=== PATIENT | female | born 1955 | race Caucasian/White ===

== ENCOUNTER 2016-06-30 08:13 | Outpatient (CLI) | payer MEDICARE | END 2016-06-30 08:14 | disposition home or self-care (01) | DX: Z13.220 Encounter for screening for lipoid disorders (principal); R73.01 Impaired fasting glucose; Z13.228 Encounter for screening for other metabolic disorders; Z13.89 Encounter for screening for other disorder ==

== ENCOUNTER 2016-08-02 09:47 | Outpatient (CLI) | payer MEDICARE ==
--- NOTE | 2016-08-03 16:18 | Mammography Report ---
DIGITAL SCREENING MAMMOGRAM: 08/02/2016 CLINICAL INDICATION: A 60-year-old with history of benign biopsy and bilateral reduction, for screeni ng. COMPARISON: 03/2012, 12/2010, 03/2009, 08/2008. TECHNIQUE: Routine CC and MLO projections were obtained of the breasts. FINDINGS: The breasts again demonstrate scattered fibroglandular densities bilaterally. A few puncta te, typically benign calcifications are present. No suspicious masses, clustered microcalcifications, or regions of architectural distortion are identified. IMPRESSION: BENIGN FINDINGS. RECOMMENDATION: ROUTINE ANNUAL SCREENING UNLESS OTHERWISE CLINICALLY INDICATED. BIRADS CATEGORY 2-BENIGN FINDINGS. STANDARD QUALIFYING STATEMENTS 1. This examination was reviewed with the aid of Computer-Aided Detection (CAD). 2. A negative or benign imaging report should not delay biopsy if clinically suspicious findings are present. Consider surgical consultation if warranted. More than 5% of cancers are not identified by i maging. 3. Dense breasts may obscure an underlying neoplasm. JOB #: [id number] EXT JOB #:[id number]
== END 2016-08-02 09:48 | disposition home or self-care (01) ==
LOC: DI 09:47
PROVIDERS: ATTEND Nurse Practitioner Family
DX: Z12.31 Encounter for screening mammogram for malignant neoplasm of breast (principal)
CPT/HCPCS: 77067

== ENCOUNTER 2017-02-06 08:06 | Outpatient (CLI) | payer MEDICARE ==
[2017-02-06 10:42] LABS: CALCIUM 8.9 mg/dL (8.5-10.3); CREATININE 0.7 mg/dL (0.4-1.0); POTASSIUM 3.4 mmol/L (3.5-5.0)
== END 2017-02-06 08:07 | disposition home or self-care (01) ==
LOC: LAB.F 08:06
PROVIDERS: ATTEND Nurse Practitioner Family
DX: Z79.899 Other long term (current) drug therapy (principal)
CPT/HCPCS: 36415; 80048

== ENCOUNTER 2017-05-02 08:00 | Outpatient (CLI) | payer MEDICARE ==
[2017-05-03 10:50] LABS: BASOPHILS % (AUTO) 0.5 %; EOSINOPHILS # (AUTO) 0.2 10^3/uL (0.0-0.7); EOSINOPHILS % (AUTO) 2.6 %; HGB - HEMOGLOBIN 14.2 g/dL (12.0-16.0); LYMPHOCYTES # (AUTO) 2.1 10^3/uL (1.5-3.5); LYMPHOCYTES % (AUTO) 32.8 %; MEAN CORPUSCULAR HEMOGLOBIN 27.3 pg (27.0-31.0); MEAN CORPUSCULAR HGB CONC 33.2 g/dL (32.0-36.0); MEAN CORPUSCULAR VOLUME 82.4 fL (81.0-99.0); MONOCYTES # (AUTO) 0.5 10^3/uL (0.0-1.0); MONOCYTES % (AUTO) 7.2 %; NEUTROPHILS # (AUTO) 3.6 10^3/uL (1.5-6.6); NEUTROPHILS % (AUTO) 56.9 %; PLT - PLATELET COUNT 237 10^3/uL (130-450); RED BLOOD COUNT 5.19 10^6/uL (4.20-5.40); RED CELL DISTRIBUTION WIDTH 13.4 % (12.0-15.0); WHITE BLOOD COUNT 6.3 x10^3/uL (4.8-10.8)
== END 2017-05-02 08:01 | disposition home or self-care (01) ==
LOC: LAB.F 08:00
PROVIDERS: ATTEND Nurse Practitioner Family
DX: Z01.818 Encounter for other preprocedural examination (principal); R94.31 Abnormal electrocardiogram [ECG] [EKG]; M75.102 Unspecified rotator cuff tear or rupture of left shoulder, not specified as traumatic
CPT/HCPCS: 36415; 85025

== ENCOUNTER 2017-05-02 15:58 | Outpatient (CLI) | payer MEDICARE | END 2017-05-02 15:59 | disposition home or self-care (01) | LOC: RT.S 15:58 | PROVIDERS: ATTEND Nurse Practitioner Family | DX: Z01.818 Encounter for other preprocedural examination (principal); R94.31 Abnormal electrocardiogram [ECG] [EKG]; M75.102 Unspecified rotator cuff tear or rupture of left shoulder, not specified as traumatic | CPT/HCPCS: 36415; 85025 ==

== ENCOUNTER 2017-12-14 10:38 | Outpatient (CLI) | payer MEDICARE | END 2017-12-14 10:39 | disposition home or self-care (01) | LOC: LAB.F 10:38 | PROVIDERS: ATTEND Nurse Practitioner Family | DX: M79.674 Pain in right toe(s) (principal) | CPT/HCPCS: 36415; 84550 ==

== ENCOUNTER 2017-12-18 12:58 | Outpatient (CLI) | payer MEDICARE ==
--- NOTE | 2017-12-19 15:48 | XRAY Report ---
Reason: FOREARM PAIN,RIGHT Procedure Date: 12/18/2017 Accession Number: [id number] / [id number] Procedure: XR - Knee 3 View RT CPT Code: FULL RESULT: EXAM: RIGHT KNEE RADIOGRAPHY EXAM DATE: 12/18/2017 01:35 PM. CLINICAL HISTORY: Swelling PAIN,RIGHT. COMPARISON: None. TECHNIQUE: 3 views. FINDINGS: Bones: Normal. No fractures or bone lesions. Joints: Osteophyte patellofemoral compartment with lateral facet narrowing. Spurring of the tibial spines. Osteophyte lateral joint space. Soft Tissues: Normal. No soft tissue swelling. IMPRESSION: Mild DJD RADIA
== END 2017-12-18 12:59 | disposition home or self-care (01) ==
LOC: DI 12:58
PROVIDERS: ATTEND Nurse Practitioner Family
DX: M17.11 Unilateral primary osteoarthritis, right knee (principal)

== ENCOUNTER 2019-10-18 09:51 | Emergency (ER) | payer MEDICAID, MEDICARE, OTHER ==
[2019-10-18 10:38] LABS: BASOPHILS % (AUTO) 0.3 %; EOSINOPHILS % (AUTO) 0.2 %; HGB - HEMOGLOBIN 14.1 g/dL (12.0-16.0); LYMPHOCYTES # (AUTO) 0.9 10^3/uL (1.5-3.5); LYMPHOCYTES % (AUTO) 8.4 %; MEAN CORPUSCULAR HEMOGLOBIN 28.7 pg (27.0-31.0); MEAN CORPUSCULAR HGB CONC 33.2 g/dL (32.0-36.0); MEAN CORPUSCULAR VOLUME 86.6 fL (81.0-99.0); MEAN PLATELET VOLUME 9.4 fL (7.9-10.8); MONOCYTES # (AUTO) 0.7 10^3/uL (0.0-1.0); NEUTROPHILS # (AUTO) 9.4 10^3/uL (1.5-6.6); NEUTROPHILS % (AUTO) 84.6 %; PLT - PLATELET COUNT 222 10^3/uL (130-450); RED BLOOD COUNT 4.91 10^6/uL (4.20-5.40); RED CELL DISTRIBUTION WIDTH 11.9 % (12.0-15.0); WHITE BLOOD COUNT 11.1 x10^3/uL (4.8-10.8)
[2019-10-18 10:38] LABS: GLUCOSE, URINE (UA) NEGATIVE (NEGATIVE); KETONES,URINE (UA) >=80 mg/dL (NEGATIVE); LEUKOCYTE ESTERASE, URINE MODERATE (NEGATIVE); NITRITE,URINE POSITIVE (NEGATIVE); OCCULT BLOOD,URINE SMALL (NEGATIVE); PH,URINE 6.5 PH (5.0-7.5); PROTEIN,URINE 30 mg/dL (NEGATIVE); UROBILINOGEN,URINE 4 E.U./dL (NORMAL)
[2019-10-18 10:39] LABS: CLARITY,URINE SL. CLOUDY (CLEAR)
[2019-10-18 10:42] LABS: BILIRUBIN,URINE NEGATIVE (NEGATIVE); ICTOTEST,URINE NEGATIVE
[2019-10-18 10:53] LABS: BACTERIA,URINE Moderate /HPF (None Seen); SQUAMOUS EPITHELIAL CELL,UR MOD Squamous (<= Few)
[2019-10-18 10:57] LABS: ALBUMIN/GLOBULIN RATIO 1.4 (1.0-2.2); BILIRUBIN,TOTAL 1.2 mg/dL (0.2-1.0); CALCIUM 9.2 mg/dL (8.5-10.3); CREATININE 0.7 mg/dL (0.4-1.0); TOTAL PROTEIN 6.8 g/dL (6.7-8.2)
[2019-10-18] MEDS ORDERED: SODIUM CHLORIDE 0.9% 1,000 ML IV STA (11:24)
--- NOTE | 2019-10-18 11:28 | ED Physician Documentation ---
PD HPI NVD - Stated complaint Stated Complaint: ABD PX - Chief complaint Chief Complaint: Abd Pain - History obtained from History obtained from: Patient - History of Present Illness Timing - onset: How many days ago (3) Timing - duration: Days (3) Timing - details: Gradual onset, Still present Associated symptoms: Abdominal pain, Dizzy, Near syncope / syncope Contributing factors: Recent antibiotics Improved by: Vomiting, BM Similar symptoms before: Has not had sx before Recently seen: Clinic - Additonal information Additional information: 63-year-old female was recently been treated for urinary tract infection with Macrobid has developed nausea vomiting and diarrhea. She has had C. difficile diarrhea previously with some bloody diarrhea but did not have any significant cramping pain. She now has cramping abdominal pain, fullness and bloating. She feels dehydrated. She does state that she thought she had a fever on the first day she is not febrile now. Review of Systems Constitutional: reports: Fever, Myalgias, Fatigue Eyes: denies: Decreased vision Ears: denies: Ear pain Nose: denies: Rhinorrhea / runny nose, Congestion Throat: denies: Sore throat Cardiac: denies: Chest pain / pressure, Palpitations Respiratory: denies: Dyspnea, Cough GI: reports: Abdominal Pain, Nausea, Vomiting, Diarrhea : denies: Dysuria, Frequency Skin: denies: Rash Musculoskeletal: denies: Neck pain, Back pain Neurologic: denies: Generalized weakness, Focal weakness, Numbness PD PAST MEDICAL HISTORY - Present Medications Home Medications: Ambulatory Orders Medication Instructions Recorded Confirmed Sulfamethoxazole/Trimethoprim 1 each PO BID #14 tablet 10/18/19 [Sulfamethoxazole-Tmp Ds Tablet] estradioL [Estradiol] 0.5 mg PO 10/18/19 traZODone [Desyrel] 50 mg PO ONCE 10/18/19 10/18/19 - Allergies Allergies/Adverse Reactions: Allergies Allergy/AdvReac Type Severity Reaction Status Date / Time No Known Drug Allergies Allergy Verified 10/18/19 09:56 PD ED PE NORMAL - Vitals Vital signs reviewed: Yes (Hypertensive mild) - General General: Alert and oriented X 3, No acute distress, Well developed/nourished - HEENT HEENT: Atraumatic, PERRL, EOMI - Neck Neck: Supple, no meningeal sign, No bony TTP - Cardiac Cardiac: RRR, No murmur - Respiratory Respiratory: No respiratory distress, Clear bilaterally - Abdomen Abdomen: Normal bowel sounds, Soft, Non distended, No organomegaly, Other (Mild generalized tenderness without guarding or rebound) - Back Back: No CVA TTP, No spinal TTP - Derm Derm: Normal color, Warm and dry, No rash - Extremities Extremities: No deformity, No edema, No calf tenderness / cord - Neuro Neuro: Alert and oriented X 3, 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, No motor deficit, No sensory deficit, Normal speech Eye Opening: Spontaneous Motor: Obeys Commands Verbal: Oriented GCS Score: 15 - Psych Psych: Normal mood, Normal affect Results - Vitals Vitals: Vital Signs - 24 hr 10/18/19 10/18/19 09:54 12:33 Temperature 36.3 C L 36.8 C Heart Rate 87 80 Respiratory 16 19 Rate Blood Pressure 138/65 H 138/84 H O2 Saturation 96 98 Oxygen O2 Source Room air - Labs Labs: Laboratory Tests 10/18/19 10/18/19 10/18/19 10:05 10:25 10:25 WBC 11.1 H RBC 4.91 Hgb 14.1 Hct 42.5 MCV 86.6 MCH 28.7 MCHC 33.2 RDW 11.9 L Plt Count 222 MPV 9.4 Neut # (Auto) 9.4 H Lymph # (Auto) 0.9 L [place] # (Auto) 0.7 Eos # (Auto) 0.0 Baso # (Auto) 0.0 Absolute Nucleated RBC 0.00 Nucleated RBC % 0.0 Sodium 139 Potassium 2.9 L Chloride 105 Carbon Dioxide 25 Anion Gap 9.0 BUN 17 Creatinine 0.7 Estimated GFR (MDRD) 84 L Glucose 117 H Calcium 9.2 Total Bilirubin 1.2 H AST 14 ALT 18 Alkaline Phosphatase 63 Total Protein 6.8 Albumin 4.0 Globulin 2.8 Albumin/Globulin Ratio 1.4 Lipase 19 L Urine Color DARK YELLOW Urine Clarity SL. CLOUDY Urine pH 6.5 Ur Specific [place] 1.025 Urine Protein 30 H Urine Glucose (UA) NEGATIVE Urine Ketones >=80 H Urine Occult Blood SMALL H Urine Nitrite POSITIVE H Urine Bilirubin NEGATIVE Urine Urobilinogen 4 H Ur Leukocyte Esterase MODERATE H Urine RBC 6-10 H Urine WBC 11-25 H Ur Squamous Epith Cells MOD Squamous H Urine Bacteria Moderate H Ur Microscopic Review INDICATED Urine Culture Comments NOT INDICATED PD MEDICAL DECISION MAKING - ED course Complexity details: reviewed old records, reviewed results, re-evaluated patient, considered differential, d/w patient ED course: 63-year-old female with acute abdominal pain vomiting and diarrhea has urinary tract symptoms as well and has urinary tract infection on evaluation of the urine under the microscope. She has recently been on some Macrobid and she has developed acute diarrhea as well. There is no blood in the diarrhea. she has abdominal cramping associated with this and she has persistence of the infection.She is found to be dehydrated on interrogation the inferior vena cava and she is administered saline, potassium and rocephin. Departure - Departure Disposition: Home, Self Care Clinical Impression: Hypokalemia Urinary tract infection Qualifiers: Urinary tract infection type: acute cystitis Hematuria presence: with hematuria Qualified Code(s): N30.01 - Acute cystitis with hematuria Condition: Stable Instructions: ED Potassium Deficiency, ED Diet High Potassium, ED UTI Cystitis Female Follow-Up: Bartolo Alvarado [Primary Care Provider] - Prescriptions: Sulfamethoxazole/Trimethoprim [Sulfamethoxazole-Tmp Ds Tablet] 1 each PO BID #14 tablet Discharge Date/Time: 10/18/19 12:50
[2019-10-18] MEDS ORDERED: KETOROLAC 30 MG/ML VIAL IVP STA (11:30)
[2019-10-18] MEDS ORDERED: cefTRIAXone 1 GM in SODIUM CHLORIDE 0.9% MINIBAG 100 ML IV STA (11:30)
[2019-10-18] MEDS ORDERED: ONDANSETRON 4 MG/2 ML VIAL IVP STA (11:30)
[2019-10-18] MEDS ORDERED: cefTRIAXone 1 GM VIAL ONE (11:40)
[2019-10-18] MEDS ORDERED: POTASSIUM CHLORIDE 20 MEQ TABLET PO STA (12:01)
[2019-10-18 12:34] VITALS: BP 138/84
--- NOTE | 2019-10-22 08:49 | HISTORY & PHYSICAL EXAMINATION ---
Chief Complaint - Chief Complaint Chief Complaint: Lower abdominal pain Abdominal Pain HPI - History Obtained From History obtained from: Patient Exam limitations: No limitations - History of Present Illness Severity at the worst: Moderate Pain Quality: Cramping Timing: Gradual onset Duration: Days: (6 days.) Worsened by: Eating Associated symptoms: Other (Change in bowel habits. Loss of appetite. Occasional bloating and loose stool) Meds/Allgy - Home Medications Home Medications: Ambulatory Orders Medication Instructions Recorded Confirmed Sulfamethoxazole/Trimethoprim 1 each PO BID #14 tablet 10/18/19 [Sulfamethoxazole-Tmp Ds Tablet] estradioL [Estradiol] 0.5 mg PO 10/18/19 traZODone [Desyrel] 50 mg PO ONCE 10/18/19 10/18/19 - Allergies Allergies/Adverse Reactions: Allergies Allergy/AdvReac Type Severity Reaction Status Date / Time No Known Drug Allergies Allergy Verified 10/18/19 09:56 Review of Systems - Constitutional Constitutional: reports: Poor appetite, Weight loss (4 lb weight loss over the last week) - Gastrointestinal Gastrointestinal: reports: Abdominal pain, Other (no prior history of di verticulitis.) - Genitourinary Genitourinary: reports: Other (mild urgency on and off for a few months. no air or debris in urine. Thought to have had a uti and has been on antibiotics last 6 days) Exam - Physical Exam General Appearance: positive: No acute distress Eyes Bilateral: positive: PERRL, EOMI Neck: positive: No JVD Respiratory: positive: No respiratory distress Abdomen: positive: No distention (left lower quadrant and suprapubic tenderness to deep palpation No guarding or peritoneal signs) Results - Lab Results Fish Bones: 10/18/19 10:25 10/18/19 10:25 - Diagnostic Imaging Results Diagnostic Imaging Results: positive: Read independently (diverticulitis with 2 abscesses) Impression/Plan - Problem List Problem List: Complicated diverticulitis with abscesses. Benign abdomen. This is her first episode of diverticulitis. She has been on antibiotics for 6 days and is not improving. We discussed this could get better with antibiotics, she might need interventional radiology drainage, and this could progress to the point of needing a colectomy and colostomy bag. Hopefully, she can avoid a colostomy. I recommend she be transferred to a facility which has interventional radiology.
== END 2019-10-18 12:50 | disposition home or self-care (01) ==
LOC: ED 09:51
DX: N30.01 Acute cystitis with hematuria (principal); E87.6 Hypokalemia
CPT/HCPCS: 36415; 80053; 81001; 83690; 85025; 96374; 96375; 99284; A9270; 81003; 87086

== ENCOUNTER 2019-10-22 05:02 | Outpatient (CLI) | payer MEDICARE | END 2019-10-22 05:03 | disposition critical access hospital (66) | LOC: EMS 05:02 | PROVIDERS: ATTEND Surgery | DX: R10.9 Unspecified abdominal pain (principal); R11.2 Nausea with vomiting, unspecified; K62.89 Other specified diseases of anus and rectum | CPT/HCPCS: A0425; A0427 ==

== ENCOUNTER 2019-10-22 05:40 | Emergency (ER) | payer MEDICARE ==
--- NOTE | 2019-10-22 05:29 | ED Physician Documentation ---
History of Present Illness - Stated complaint Stated Complaint: ABD PAIN - History obtained from History obtained from: Patient - Additonal information Additional information: Pain with abdominal pain with vomiting and diarrhea. Was seen here on the diagnosed with acute cystitis and sent home with a prescription for Bactrim. She is complained of worsening dysuria and bilateral flank pain and vomiting and diarrhea unable unable to keep any of her medication down.Also reports subjective fevers as well. Review of Systems Constitutional: reports: Fever, Chills Eyes: reports: Reviewed and negative Ears: reports: Reviewed and negative Nose: reports: Reviewed and negative Throat: reports: Reviewed and negative Cardiac: reports: Reviewed and negative Respiratory: reports: Reviewed and negative GI: reports: Abdominal Pain, Abdominal Swelling, Nausea, Vomiting : reports: Reviewed and negative Skin: reports: Reviewed and negative Musculoskeletal: reports: Reviewed and negative Neurologic: reports: Reviewed and negative Psychiatric: reports: Reviewed and negative Endocrine: reports: Reviewed and negative Immunocompromised: reports: Reviewed and negative PD PAST MEDICAL HISTORY - Present Medications Home Medications: Ambulatory Orders Medication Instructions Recorded Confirmed Sulfamethoxazole/Trimethoprim 1 each PO BID #14 tablet 10/18/19 [Sulfamethoxazole-Tmp Ds Tablet] estradioL [Estradiol] 0.5 mg PO 10/18/19 traZODone [Desyrel] 50 mg PO ONCE 10/18/19 10/18/19 - Allergies Allergies/Adverse Reactions: Allergies Allergy/AdvReac Type Severity Reaction Status Date / Time No Known Drug Allergies Allergy Verified 10/18/19 09:56 PD ED PE NORMAL - Vitals Vital signs reviewed: Yes - General General: Alert and oriented X 3, No acute distress, Well developed/nourished - HEENT HEENT: PERRL - Neck Neck: Supple, no meningeal sign, No adenopathy, Thyroid normal - Cardiac Cardiac: RRR, No murmur, Strong equal pulses - Respiratory Respiratory: No respiratory distress, Clear bilaterally - Abdomen Abdomen: Soft, Other (No midline abdominal pulsatile mass, hyperactive bowel sounds diffuse tenderness to palpation.) - Derm Derm: Normal color, Warm and dry, No rash - Extremities Extremities: No deformity, No tenderness to palpate, Normal ROM s pain, No edema, No calf tenderness / cord - Neuro Neuro: Alert and oriented X 3, 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, No motor deficit, No sensory deficit, Normal speech - Psych Psych: Normal mood, Normal affect Results - Vitals Vitals: Vital Signs - 24 hr 10/22/19 10/22/19 10/22/19 05:45 06:47 07:30 Temperature 37.4 C 37.3 C Heart Rate 83 76 74 Respiratory 16 18 14 Rate Blood Pressure 145/81 H 123/68 132/64 H O2 Saturation 98 100 100 10/22/19 10/22/19 10/22/19 08:10 09:01 10:35 Temperature Heart Rate 87 82 79 Respiratory 16 16 16 Rate Blood Pressure 124/64 137/93 H 127/64 O2 Saturation 100 98 94 10/22/19 12:07 Temperature 37.4 C Heart Rate 81 Respiratory 16 Rate Blood Pressure 121/62 O2 Saturation 99 Oxygen O2 Source Room air - Labs Labs: Laboratory Tests 10/22/19 10/22/19 10/22/19 05:50 05:59 05:59 WBC 11.2 H RBC 4.82 Hgb 13.9 Hct 41.5 MCV 86.1 MCH 28.8 MCHC 33.5 RDW 11.5 L Plt Count 266 MPV 8.8 Neut # (Auto) 9.4 H Lymph # (Auto) 0.7 L [place] # (Auto) 1.0 Eos # (Auto) 0.0 Baso # (Auto) 0.0 Absolute Nucleated RBC 0.00 Nucleated RBC % 0.0 PT 14.1 H INR 1.3 H APTT 28.0 Sodium Potassium Chloride Carbon Dioxide Anion Gap BUN Creatinine Estimated GFR (MDRD) Glucose Lactic Acid Calcium Magnesium Total Bilirubin AST ALT Alkaline Phosphatase Total Creatine Kinase Total Protein Albumin Globulin Albumin/Globulin Ratio Lipase Urine Color YELLOW Urine Clarity CLEAR Urine pH 6.0 Ur Specific [place] 1.020 Urine Protein NEGATIVE Urine Glucose (UA) NEGATIVE Urine Ketones 15 H Urine Occult Blood SMALL H Urine Nitrite NEGATIVE Urine Bilirubin NEGATIVE Urine Urobilinogen 0.2 (NORMAL) Ur Leukocyte Esterase NEGATIVE Urine RBC 0-5 Urine WBC 0-3 Ur Squamous Epith Cells RARE Squamous Urine Bacteria None Seen Urine Casts 0-2 Hyaline Casts Urine Mucus Few Strands Ur Microscopic Review INDICATED Urine Culture Comments NOT INDICATED 10/22/19 10/22/19 05:59 06:29 WBC RBC Hgb Hct MCV MCH MCHC RDW Plt Count MPV Neut # (Auto) Lymph # (Auto) [place] # (Auto) Eos # (Auto) Baso # (Auto) Absolute Nucleated RBC Nucleated RBC % PT INR APTT Sodium 139 Potassium 3.5 Chloride 104 Carbon Dioxide 23 Anion Gap 12.0 BUN 12 Creatinine 0.9 Estimated GFR (MDRD) 63 L Glucose 122 H Lactic Acid 1.2 Calcium 9.3 Magnesium 1.7 Total Bilirubin 0.9 AST 14 ALT 16 Alkaline Phosphatase 50 Total Creatine Kinase 32 Total Protein 6.6 L Albumin 3.9 Globulin 2.7 Albumin/Globulin Ratio 1.4 Lipase 22 Urine Color Urine Clarity Urine pH Ur Specific [place] Urine Protein Urine Glucose (UA) Urine Ketones Urine Occult Blood Urine Nitrite Urine Bilirubin Urine Urobilinogen Ur Leukocyte Esterase Urine RBC Urine WBC Ur Squamous Epith Cells Urine Bacteria Urine Casts Urine Mucus Ur Microscopic Review Urine Culture Comments PD MEDICAL DECISION MAKING - ED course Complexity details: reviewed results, re-evaluated patient, considered differential (Pyelonephritis, dehydration, diverticulitis, cholecystitis, pancreatitis,Appendicitis.), d/w patient, other (Patient will be signed out at shift change to Dr. Bartolo Meier.) Departure - Departure Disposition: 02 Transfer Acute Care Hosp Clinical Impression: Diverticulitis of intestine with abscess Abdominal pain Qualifiers: Abdominal location: unspecified location Qualified Code(s): R10.9 - Unspecified abdominal pain Condition: Stable Discharge Date/Time: 10/22/19 12:45
[2019-10-22] MEDS ORDERED: SODIUM CHLORIDE 0.9% 1,000 ML IV STA ×2 (05:47→07:56)
[2019-10-22] MEDS ORDERED: cefTRIAXone 1 GM VIAL IVP STA (05:47)
[2019-10-22] MEDS ORDERED: ALBUTEROL NEB 2.5 MG/3 ML INH ONE (06:04)
[2019-10-22] MEDS ORDERED: IOVERSOL 320 100 ML VIAL IVP ONE (06:06)
[2019-10-22 06:08] LABS: BASOPHILS % (AUTO) 0.4 %; EOSINOPHILS % (AUTO) 0.2 %; HGB - HEMOGLOBIN 13.9 g/dL (12.0-16.0); LYMPHOCYTES # (AUTO) 0.7 10^3/uL (1.5-3.5); MEAN CORPUSCULAR HEMOGLOBIN 28.8 pg (27.0-31.0); MEAN CORPUSCULAR HGB CONC 33.5 g/dL (32.0-36.0); MEAN CORPUSCULAR VOLUME 86.1 fL (81.0-99.0); MEAN PLATELET VOLUME 8.8 fL (7.9-10.8); MONOCYTES % (AUTO) 9.2 %; NEUTROPHILS # (AUTO) 9.4 10^3/uL (1.5-6.6); NEUTROPHILS % (AUTO) 83.8 %; PLT - PLATELET COUNT 266 10^3/uL (130-450); RED BLOOD COUNT 4.82 10^6/uL (4.20-5.40); RED CELL DISTRIBUTION WIDTH 11.5 % (12.0-15.0); WHITE BLOOD COUNT 11.2 x10^3/uL (4.8-10.8)
[2019-10-22] MEDS ORDERED: MORPHINE 2 MG/ML CARPUJECT IVP STA (06:09)
[2019-10-22] MEDS ORDERED: ONDANSETRON 4 MG/2 ML VIAL IVP STA ×2 (06:09→12:16)
[2019-10-22 06:12] LABS: GLUCOSE, URINE (UA) NEGATIVE (NEGATIVE); KETONES,URINE (UA) 15 mg/dL (NEGATIVE); LEUKOCYTE ESTERASE, URINE NEGATIVE (NEGATIVE); NITRITE,URINE NEGATIVE (NEGATIVE); OCCULT BLOOD,URINE SMALL (NEGATIVE); PROTEIN,URINE NEGATIVE (NEGATIVE); UROBILINOGEN,URINE 0.2 (NORMAL) E.U./dL (NORMAL)
[2019-10-22 06:18] LABS: INR 1.3 (0.8-1.2); PT - PROTHROMBIN TIME 14.1 secs (9.9-12.6)
[2019-10-22 06:23] LABS: ALBUMIN 3.9 g/dL (3.2-5.5); ALBUMIN/GLOBULIN RATIO 1.4 (1.0-2.2); BILIRUBIN,TOTAL 0.9 mg/dL (0.2-1.0); CALCIUM 9.3 mg/dL (8.5-10.3); CREATININE 0.9 mg/dL (0.4-1.0); MAGNESIUM 1.7 mg/dL (1.7-2.8); TOTAL PROTEIN 6.6 g/dL (6.7-8.2)
[2019-10-22 06:24] LABS: BILIRUBIN,URINE NEGATIVE (NEGATIVE); CLARITY,URINE CLEAR (CLEAR); ICTOTEST,URINE NEGATIVE
[2019-10-22 06:37] LABS: BACTERIA,URINE None Seen /HPF (None Seen); CASTS, URINE 0-2 Hyaline Casts /LPF; MUCUS,URINE Few Strands; RBC,URINE 0-5 /HPF (0-5); SQUAMOUS EPITHELIAL CELL,UR RARE Squamous (<= Few)
[2019-10-22] MEDS ORDERED: HYDROmorphone 1 MG/ML CARPUJECT IVP STA ×3 (07:55→12:16)
--- NOTE | 2019-10-22 08:37 | CT Report ---
PROCEDURE: Abdomen/Pelvis W INDICATIONS: Abdominal pain CONTRAST: IV CONTRAST: Optiray 320 ml: 100 PO CONTRAST: *NO PO CONTRAST TECHNIQUE: After the IV administration of 100 cc Optiray 320, 5 mm thick sections acquired from the diaphragms t o the symphysis. 5 mm thick coronal and sagittal reformats were acquired. For radiation dose reduct ion, the following was used: automated exposure control, adjustment of mA and/or kV according to pat ient size. COMPARISON: None. FINDINGS: Image quality: Excellent. ABDOMEN: Lung bases: Lung bases are clear. Heart size is normal. Solid organs: Liver and spleen are normal in size and enhancement. Gallbladder unremarkable. Bilia ry system is non dilated. Pancreas enhances normally. No adrenal nodules. Kidneys demonstrate norm al size and enhancement, without hydronephrosis. Peritoneum and bowel: Diverticulosis of the distal descending colon and in the sigmoid colon. There i s extensive inflammatory change centered on a long segment of the sigmoid colon in the deep pelvis. T his spans at least 10 cm in length. There is wall thickening with mucosal hyperenhancement and extens vel adjacent inflammatory fat stranding along with engorged vasa recta. There are 2 organized rim-enh ancing fluid collections which also contain air, indicative of perforated diverticulitis with abscess formation. These abscesses measure approximately 3.1 x 1.7 x 2.5 cm in the left posterior hemipelvis and 3.4 x 2.3 x 1.9 cm in the right hemipelvis extending towards midline with foci of anti-dependent air. The inflammatory changes and the abscesses both abut the urinary bladder and uterus as well as the pelvic sidewalls. Remainder of the bowel is normal in appearance. Nodes and vessels: No retroperitoneal or mesenteric adenopathy by size criteria. Aorta and inferior vena cava are normal in size. Miscellaneous: No ventral hernias. PELVIS: Genitourinary: Bladder wall thickness is normal. Miscellaneous: No inguinal hernias or adenopathy. Bones: No suspicious bony lesions. No vertebral body compression fractures. IMPRESSION: Perforated diverticulitis with two pelvic abscesses. Inflammatory changes and abscesses both abut the urinary bladder and uterus. No evidence of fistula formation at this time. No significant change fro m preliminary report. Reviewed by: Lakhwinder Love MD on 10/22/2019 8:36 AM PDT Approved by: Lakhwinder Love MD on 10/22/2019 8:36 AM PDT Station ID: [id number]
--- NOTE | 2019-10-22 10:26 | ED Physician Documentation ---
ED Addendum - Addendum Addendum: 10/22/19 10:23 Patient was seen on change of shift and was still having significant waves of crampy pain. She is given Dilaudid IV with improvement. Awaiting her CT results. The CT did result which showed a sigmoid diverticulitis abutting the bladder with 2 local abscesses 3.4 and 3 cm maximal diameter for each. There was also microperforation with small air bubbles. I consulted Dr. Umanzor on for general surgery and he reviewed the films. The size of the abscesses did not quite meet criteria for needing drainage but they are close by and he is concerned is that they will expand or become confluent which would create a large enough abscess for drainage. He felt her condition was beyond our capability given that we have no interventional radiology. He met with the patient and discussed options including surgery as an alternative and the patient elected on transfer to another facility for lesser intervention capability such as IR. [facility] did not have any beds available as this was her first choice. She has had prior surgery on her shoulder and other affiliations with [facility] so we reached out to them. They did have beds available. I talked with Dr. Mai who is on for general surgery and he refers to the medicine service. I talked with who accepted transfer. Awaiting bed assignment and will provide medically capable transfer by EMS. Disposition patient is transferred in stable condition Diagnoses lower abdominal pain 2. Acute sigmoid diverticulitis with microperforation and abscess
[2019-10-22 12:08] VITALS: BP 121/62
[2019-10-22] MEDS ORDERED: LACTATED RINGERS 1,000 ML IV STA (12:17)
== END 2019-10-22 12:45 | disposition short-term general hospital (02) ==
LOC: EDUNIT# → ED 05:40
DX: K57.20 Diverticulitis of large intestine with perforation and abscess without bleeding (principal)
CPT/HCPCS: 36415; 74177; 80053; 81001; 82550; 83605; 83690; 83735; 85025; 85610; 85730; 87040; 96361; 96374; 96375; 96376; 99284; 99285; J1170; J7120; Q9967; 81003; 87086

== ENCOUNTER 2019-10-22 12:42 | Outpatient (CLI) | payer MEDICARE | END 2019-10-22 12:43 | disposition short-term general hospital (02) | LOC: EMS 12:42 | PROVIDERS: ATTEND Surgery | DX: K57.80 Diverticulitis of intestine, part unspecified, with perforation and abscess without bleeding (principal) | CPT/HCPCS: A0425; A0426 ==

== ENCOUNTER 2020-05-20 17:20 | Emergency (ER) | payer MEDICARE ==
[2020-05-20 17:59] LABS: BASOPHILS # (AUTO) 0.1 10^3/uL (0.0-0.1); BASOPHILS % (AUTO) 0.6 %; EOSINOPHILS # (AUTO) 0.1 10^3/uL (0.0-0.7); EOSINOPHILS % (AUTO) 0.5 %; HCT - HEMATOCRIT 45.3 % (37.0-47.0); HGB - HEMOGLOBIN 15.1 g/dL (12.0-16.0); LYMPHOCYTES # (AUTO) 1.9 10^3/uL (1.5-3.5); LYMPHOCYTES % (AUTO) 17.1 %; MEAN CORPUSCULAR HEMOGLOBIN 27.8 pg (27.0-31.0); MEAN CORPUSCULAR HGB CONC 33.3 g/dL (32.0-36.0); MEAN CORPUSCULAR VOLUME 83.3 fL (81.0-99.0); MEAN PLATELET VOLUME 9.3 fL (7.9-10.8); MONOCYTES # (AUTO) 0.9 10^3/uL (0.0-1.0); MONOCYTES % (AUTO) 8.1 %; NEUTROPHILS # (AUTO) 7.9 10^3/uL (1.5-6.6); NEUTROPHILS % (AUTO) 73.3 %; PLT - PLATELET COUNT 239 10^3/uL (130-450); RED BLOOD COUNT 5.44 10^6/uL (4.20-5.40); RED CELL DISTRIBUTION WIDTH 12.3 % (12.0-15.0); WHITE BLOOD COUNT 10.8 x10^3/uL (4.8-10.8)
[2020-05-20 18:13] LABS: BILIRUBIN,URINE NEGATIVE (NEGATIVE); GLUCOSE, URINE (UA) NEGATIVE (NEGATIVE); KETONES,URINE (UA) 40 mg/dL (NEGATIVE); LEUKOCYTE ESTERASE, URINE NEGATIVE (NEGATIVE); NITRITE,URINE NEGATIVE (NEGATIVE); OCCULT BLOOD,URINE SMALL (NEGATIVE); PROTEIN,URINE NEGATIVE (NEGATIVE); UROBILINOGEN,URINE 0.2 (NORMAL) E.U./dL (NORMAL)
[2020-05-20 18:15] LABS: ALBUMIN 4.6 g/dL (3.2-5.5); BILIRUBIN,TOTAL 1.2 mg/dL (0.2-1.0); CALCIUM 9.5 mg/dL (8.5-10.3); CREATININE 0.8 mg/dL (0.4-1.0); POTASSIUM 2.9 mmol/L (3.5-5.0); TOTAL PROTEIN 6.9 g/dL (6.7-8.2)
[2020-05-20] MEDS ORDERED: HYDROmorphone 1 MG/ML CARPUJECT IVP STA (18:16)
[2020-05-20] MEDS ORDERED: SODIUM CHLORIDE 0.9% 1,000 ML IV STA (18:16)
[2020-05-20] MEDS ORDERED: ONDANSETRON 4 MG/2 ML VIAL IVP STA (18:16)
--- NOTE | 2020-05-20 18:19 | ED Physician Documentation ---
History of Present Illness - Stated complaint Stated Complaint: ABD PX - Chief complaint Chief Complaint: Abd Pain - Additonal information Additional information: 64-year-old female presents the emergency department with left lower quadrant a bdominal pain acutely worsening over the last 2 days. Low-grade temperature elevation here. She has been reporting diarrhea for 2 days nonbloody. She has a history of complicated diverticulitis. In October 2019 she was found to have a very large 5 cm abscess related to this diverticulitis. She was seen and evaluated at [facility]. Unfortunately she was not a candidate for surgery the reason why is not clear to me. Since discharge from [facility] she has had 3 additional courses of Levaquin and Flagyl for diverticulitis and lower abdominal pain. pt is finishing a 7 days course of levaquin and flagyl right now Review of Systems Constitutional: reports: Fever Eyes: reports: Reviewed and negative Ears: reports: Loss of hearing Nose: reports: Reviewed and negative Throat: reports: Reviewed and negative Cardiac: reports: Reviewed and negative Respiratory: reports: Reviewed and negative GI: reports: Abdominal Pain, Diarrhea : reports: Reviewed and negative Skin: reports: Reviewed and negative Musculoskeletal: reports: Reviewed and negative Neurologic: reports: Reviewed and negative PD PAST MEDICAL HISTORY - Past Surgical History Past Surgical History: Yes Ortho: Rotator cuff repair, Shoulder arthroplasty - Present Medications Home Medications: Ambulatory Orders Medication Instructions Recorded Confirmed estradioL [Estradiol] 0.5 mg PO DAILY 10/18/19 05/20/20 Amox/Clav 875/125 [Augmentin] 1 each PO Q12H #20 tablet 05/20/20 Levofloxacin 750 mg PO DAILY 05/20/20 05/20/20 Metronidazole 500 mg PO TID 05/20/20 05/20/20 - Allergies Allergies/Adverse Reactions: Allergies Allergy/AdvReac Type Severity Reaction Status Date / Time No Known Drug Allergies Allergy Verified 05/20/20 17:32 - Social History Does the pt smoke?: No Smoking Status: Never smoker Does the pt drink ETOH?: No Does the pt have substance abuse?: No - Immunizations Immunizations are current?: Yes - POLST Patient has POLST: No PD ED PE EXPANDED - General General: Alert, No acute distress - Cardiac Cardiac: Regular Rate, Radial strong equal, Pedal strong equal, Cap refill < 2 sec. No: Murmur Present - Respiratory Respiratory: Clear to ausultation [id number]. No: Distress, Labored - Abdomen Abdomen: Normal Bowel sounds, Tender to palpation, LLQ (no guarding or rebound) - Derm Derm: Normal color, Warm and dry - Extremities Extremities: Normal. No: Deformity, Tenderness - Neuro Neuro: Alert and Oriented X 3, CNII-XII intact Results - Vitals Vitals: Vital Signs - 24 hr 05/20/20 18:05 Temperature 38.2 C H Heart Rate 76 Respiratory 18 Rate Blood Pressure 150/82 H O2 Saturation 100 Oxygen O2 Source Room air - Labs Labs: Laboratory Tests 05/20/20 05/20/20 05/20/20 17:35 17:46 17:46 WBC 10.8 RBC 5.44 H Hgb 15.1 Hct 45.3 MCV 83.3 MCH 27.8 MCHC 33.3 RDW 12.3 Plt Count 239 MPV 9.3 Neut # (Auto) 7.9 H Lymph # (Auto) 1.9 [place] # (Auto) 0.9 Eos # (Auto) 0.1 Baso # (Auto) 0.1 Absolute Nucleated RBC 0.00 Nucleated RBC % 0.0 Sodium 140 Potassium 2.9 L Chloride 104 Carbon Dioxide 26 Anion Gap 10.0 BUN 12 Creatinine 0.8 Estimated GFR (MDRD) 72 L Glucose 113 H Lactic Acid Calcium 9.5 Total Bilirubin 1.2 H AST 16 ALT 14 Alkaline Phosphatase 47 Total Protein 6.9 Albumin 4.6 Globulin 2.3 Albumin/Globulin Ratio 2.0 Lipase 25 Urine Color YELLOW Urine Clarity CLEAR Urine pH 6.0 Ur Specific [place] 1.020 Urine Protein NEGATIVE Urine Glucose (UA) NEGATIVE Urine Ketones 40 H Urine Occult Blood SMALL H Urine Nitrite NEGATIVE Urine Bilirubin NEGATIVE Urine Urobilinogen 0.2 (NORMAL) Ur Leukocyte Esterase NEGATIVE Urine RBC 0-5 Urine WBC 0-3 Ur Squamous Epith Cells RARE Squamous Urine Bacteria Rare Ur Microscopic Review INDICATED Urine Culture Comments NOT INDICATED 05/20/20 18:24 WBC RBC Hgb Hct MCV MCH MCHC RDW Plt Count MPV Neut # (Auto) Lymph # (Auto) [place] # (Auto) Eos # (Auto) Baso # (Auto) Absolute Nucleated RBC Nucleated RBC % Sodium Potassium Chloride Carbon Dioxide Anion Gap BUN Creatinine Estimated GFR (MDRD) Glucose Lactic Acid 1.0 Calcium Total Bilirubin AST ALT Alkaline Phosphatase Total Protein Albumin Globulin Albumin/Globulin Ratio Lipase Urine Color Urine Clarity Urine pH Ur Specific [place] Urine Protein Urine Glucose (UA) Urine Ketones Urine Occult Blood Urine Nitrite Urine Bilirubin Urine Urobilinogen Ur Leukocyte Esterase Urine RBC Urine WBC Ur Squamous Epith Cells Urine Bacteria Ur Microscopic Review Urine Culture Comments - Rads (name of study) CT abd Radiology: Final report received (Mild sigmoid diverticulitis without perforation or abscess.) PD MEDICAL DECISION MAKING - ED course Complexity details: reviewed results, re-evaluated patient, considered differential, d/w patient, d/w workers compensation consultant ([place]) ED course: 64-year-old female presents the emergency department for evaluation of left lower quadrant abdominal pain. She does have a history of complicated diverticulitis with abscess formation. She is currently completing a 7-day course of Levaquin and Flagyl. Screening labs show no acute abnormalities. Ne gative lactate. CT scan of her abdomen shows mild to sigmoid diverticulitis without perforation or abscess. Patient reports to me that she has been told that she likely needs an elective colectomy but is hesitant to get the surgery. I did discuss this case briefly with on-call surgeon here Dr. Magdaleno. We will initiate the patient on Augmentin but patient does not need to be admitted to the [facility]. She is encouraged to follow-up closely with her surgeon at [facility]. If her symptoms worsen, she has fevers bloody stools she is to return immediately to the emergency department. Departure - Departure Disposition: 01 Home, Self Care Clinical Impression: Diverticulitis large intestine w/o perforation or abscess w/o bleeding Condition: Stable Record reviewed to determine appropriate education?: Yes Instructions: ED Diverticulitis Prescriptions: Amox/Clav 875/125 [Augmentin] 1 each PO Q12H #20 tablet Comments: Emilie you have reached the point with your diverticulitis that you likely need to have an elective colectomy. Please discuss this with your [facility] surgeon Dr. Licea The CT scan today shows a mild diverticulitis without complicating findings. I would like to start you on a 10-day course of Augmentin. Fill the prescription tomorrow your first dose was given today in the emergency department. If at any point you are having worsening pain despite the Augmentin, you develop fevers uncontrolled vomiting please return immediately to the ER for a second look.
[2020-05-20 18:34] LABS: CLARITY,URINE CLEAR (CLEAR)
[2020-05-20] MEDS ORDERED: IOVERSOL 320 100 ML VIAL IVP ONE (18:36)
[2020-05-20 18:41] LABS: BACTERIA,URINE Rare /HPF (None Seen); RBC,URINE 0-5 /HPF (0-5); SQUAMOUS EPITHELIAL CELL,UR RARE Squamous (<= Few); WBC,URINE 0-3 /HPF (0-5)
--- NOTE | 2020-05-20 19:46 | CT Report ---
PROCEDURE: Abdomen/Pelvis W INDICATIONS: Diverticulitis CONTRAST: IV CONTRAST: Optiray 320 ml: 100 PO CONTRAST: *NO PO CONTRAST TECHNIQUE: After the administration of intravenous contrast, 5 mm thick sections acquired from the diaphragms to the symphysis. 5 mm thick coronal and sagittal reformats were acquired. For radiation dose reducti on, the following was used: automated exposure control, adjustment of mA and/or kV according to juan carlos ent size. COMPARISON: 10/22/2019 FINDINGS: Image quality: Excellent. ABDOMEN: Lung bases: Lung bases are clear. Heart size is normal. Solid organs: Liver and spleen are normal in size and enhancement. Gallbladder is normal. Biliary system is non dilated. Pancreas enhances normally. No adrenal nodules. Kidneys demonstrate normal size and enhancement, without hydronephrosis. Peritoneum and bowel: Short segment sigmoid colon wall thickening with adjacent fat stranding and en gorged vasa recta. No perforation or abscess. Bowel loops demonstrate normal wall thickness and calib er. No free fluid or air. Nodes and vessels: No retroperitoneal or mesenteric adenopathy by size criteria. Aorta and inferior vena cava are normal in size. Miscellaneous: No ventral hernias. PELVIS: Genitourinary: Bladder wall thickness is normal. Miscellaneous: No inguinal hernias or adenopathy. Bones: No suspicious bony lesions. No vertebral body compression fractures. IMPRESSION: Mild sigmoid diverticulitis without perforation or abscess. Reviewed by: Lakhwinder Love MD on 05/20/2020 7:45 PM PDT Approved by: Lakhwinder Love MD on 05/20/2020 7:45 PM PDT Station ID: [id number]
[2020-05-20] MEDS ORDERED: AMOX/CLAV 875 MG/125 MG TABLET PO STA ×2 (19:56→20:16)
[2020-05-20] MEDS ORDERED: POTASSIUM CHLORIDE 20 MEQ TABLET PO STA (19:56)
[2020-05-20 20:43] VITALS: BP 148/84
[2020-05-21] MEDS ORDERED: IOVERSOL 320 100 ML VIAL IVP ONE (00:04)
== END 2020-05-20 20:43 | disposition home or self-care (01) ==
LOC: ED 17:20
DX: K57.32 Diverticulitis of large intestine without perforation or abscess without bleeding (principal)
CPT/HCPCS: 36415; 74177; 80053; 81001; 83605; 83690; 85025; 87040; 96361; 96374; 99284; A9270; J1170; Q9967; 81003; 87086

== ENCOUNTER 2021-01-08 14:13 | Outpatient (CLI) | payer MEDICARE | END 2021-01-08 14:14 | disposition home or self-care (01) | LOC: COV 14:13 | PROVIDERS: ATTEND Family Medicine | DX: Z20.822 Contact with and (suspected) exposure to COVID-19 (principal) ==

== ENCOUNTER 2023-03-16 08:00 | Outpatient (CLI) | payer MEDICARE ==
--- NOTE | 2023-03-16 21:12 | XRAY Report ---
PROCEDURE: Chest 2V INDICATIONS: ACUTE BRONCHITIS TECHNIQUE: 2 views of the chest were acquired. COMPARISON: None. FINDINGS: Surgical changes and devices: None. Lungs and pleura: No pleural effusions or pneumothorax. Lungs are clear. Mediastinum: Mediastinal contours appear normal. Heart size is normal. Bones and chest wall: No suspicious bony lesions. Overlying soft tissues appear unremarkable. IMPRESSION: No acute cardiopulmonary process. Reviewed by: Ottoniel Chun MD on 03/16/2023 9:11 PM [facility] [[email or web address]] Approved by: Ottoniel Chun MD on 03/16/2023 9:11 PM [facility] [[email or web address]] Station ID: [id number]
== END 2023-03-16 23:59 | disposition home or self-care (01) ==
LOC: DI.S 08:00
PROVIDERS: ATTEND Physician Assistant
DX: J20.9 Acute bronchitis, unspecified (principal)

== ENCOUNTER 2023-03-16 08:00 | Outpatient (CLI) | payer MEDICARE | END 2023-03-16 08:01 | disposition home or self-care (01) | LOC: LAB.S 08:00 | PROVIDERS: ATTEND Physician Assistant | DX: J20.9 Acute bronchitis, unspecified (principal) ==

== ENCOUNTER 2023-05-10 08:00 | Outpatient (CLI) | payer MEDICARE | END 2023-05-10 23:59 | disposition home or self-care (01) | LOC: LAB.S 08:00 | PROVIDERS: ATTEND Nurse Practitioner | DX: R30.0 Dysuria (principal) | CPT/HCPCS: 87077; 87086; 87181 ==